=== PATIENT | male | born 1965 | race Caucasian/White ===

== ENCOUNTER 2024-03-29 11:25 | Observation (INO) ==
[2024-03-29 11:34] VITALS: BMI 23.7
--- NOTE | 2024-03-29 11:43 | DR.GIBLEED ---
HPI Time Seen Time Seen by Provider: 03/29/24 11:42 Primary Care Physician Primary Care Physician: NFD Complaints Chief Complaint Doctors Comments: 59-year-old male presents for evaluation. Patient states she had a right inguinal hernia repair approxi-1/2 years ago at another facility. Hernia has returned, has been increasing over the past several weeks pain and swelling worsened this a.m. Denies associated nausea, vomiting, constipation he has had 2 episodes of bowel movements with bright red blood today states she has had a large amount of clots in the toilet denies fever, chills, URI symptoms, bladder issues. Chief Complaint:: Patient states that he has a hernia that has reappeared in his lower abdomen. He had surgery to repair the hernia around a year and a half ago. He states that since then he started passing loose red stools. This all started this morning. He states that he has pain around the hernia and rates it a 9/10. COVID-19 Coronavirus risk:travel/contact w/high risk person: No Has patient experienced Coronavirus symptoms: No Reviewed Nurses Notes Reviewed: Yes Source History Provided: Patient Mode of Arrival Mode of Arrival: Ambulatory Timing Onset of Chief Complaint: 03/29/24 PMH PMH Past Medical History: No Past Surgical History: Yes Surgical History: Ortho Surgery and Other Past Surgical History Comment: Right hip, hernia repair Family History History of Family Medical Conditions: Yes Family Medical History: Diabetes Mellitus, Cancer and Hypertension Social History Does patient currently use any type of tobacco product: Yes Have you used tobacco products in the last 12 months: Yes Type of Tobacco Use: Cigarettes Does any household member use tobacco: Yes Alcohol Use: Occasionally Do you use any recreational Drugs:: No Lives With: Family Lives Where: Home Travel Risk Coronavirus risk:travel/contact w/high risk person: No Has patient experienced Coronavirus symptoms: No Infectious screening In the last 2 months have you had wt loss of >10#?: NO Have you had fever, night sweats or hemotysis?: No Have you traveled outside the country in the last 6 months?: No Isolation: Standard ROS Review of Systems Constitutional: No Symptoms Reported Eyes: No Symptoms Reported ENTM: No Symptoms Reported Respiratoy: No Symptoms Reported Cardiovascular: No Symptoms Reported Gastrointestinal/Abdominal: See HPI Genitourinary: No Symptoms Reported Neurological: No Symptoms Reported Musculoskeletal: No Symptoms Reported Integumentary: No Symptoms Reported Hematologic/Lymphatic: See HPI All Other Systems: Reviewed and Negative PE Vital Signs Vitals: Vital Signs Temperature 97.6 F Pulse Rate 105 Respiratory Rate 18 Respiratory Rate 18 Blood Pressure 122/85 O2 Sat by Pulse Oximetry 96 General General Appearance: Alert and In No Apparent Distress Eyes Eye exam: PERRL and EOMI ENT ENT Exam: Mucous Membranes Moist Neck Neck Exam: Normal Inspection Respiratory Respiratory Exam: Normal Lung Sounds Bilat; negative Accessory Muscle Use or Respiratory Distress Cardiovascular Cardiovascular Exam: Regular Rate, Normal Rhythm and Normal Heart Sounds Abdominal Exam Abdominal Exam: Normal Bowel Sounds, Soft and Tenderness (R inguinal hernia, large, soft, unable to reduce. ) Rectal Rectal Exam: Other (small amount of brown stool, no gross blood. ) Extremities Extremities Exam: Normal Inspection Neurologic Neurological Exam: Alert, Oriented X3 and CN II-XII Intact; negative Motor Sensory Deficit Skin Skin Exam: Warm and Dry COURSE Treatment Treatment: Patient reportedly with repair of right inguinal hernia 1 1/2 years ago, now back to larger size. Also reports bright red blood per rectum x 2 today. Rectal exam shows brown stool, is heme positive. Labs are overall acceptable. CT of the abdomen pelvis obtained, shows large right inguinal hernia, with degree of small bowel obstruction. Discussed with general surgery, Dr. Shirley, he will admit the patient ROR Labs Reviewed Laboratory Results Reviewed?: Yes 03/29/24 12:04 03/29/24 12:04 Laboratory: WBC 15.7 X10^3/uL (3.6-10.0) H 03/29/24 12:04 RBC 5.42 X10^6/uL (4.7-6.0) 03/29/24 12:04 Hgb 15.9 g/dL (13.5-18.0) 03/29/24 12:04 Hct 47.8 % (42.0-54.0) 03/29/24 12:04 MCV 88.2 fL (80.0-100.0) 03/29/24 12:04 MCH 29.4 pg (27.0-34.0) 03/29/24 12:04 MCHC 33.3 g/dL (33.0-35.0) 03/29/24 12:04 RDW 15.8 % (11.6-16.5) 03/29/24 12:04 Plt Count 278 X10^3/uL (150.0-450.0) 03/29/24 12:04 MPV 6.7 fL (7.4-11.0) L 03/29/24 12:04 Neut % (Auto) 87.6 % (42.0-75.0) H 03/29/24 12:04 Lymph % (Auto) 8.6 % (21.0-51.0) L 03/29/24 12:04 [place] % (Auto) 3.5 % (0.0-13.0) 03/29/24 12:04 Eos % (Auto) 0.1 % (0.9-2.9) L 03/29/24 12:04 Baso % (Auto) 0.2 % (0.2-1.0) 03/29/24 12:04 Neut # (Auto) 13.8 x10^3/uL (2.2-4.8) H 03/29/24 12:04 Lymph # (Auto) 1.3 X10^3/uL (1.3-2.9) 03/29/24 12:04 [place] # (Auto) 0.6 x10^3/uL (0.3-0.8) 03/29/24 12:04 Eos # (Auto) 0.0 x10^3/uL (0.0-0.2) 03/29/24 12:04 Baso # (Auto) 0.0 X10^3/uL (0.0-0.1) 03/29/24 12:04 Absolute Nucleated RBC 0.3 /100WBC 03/29/24 12:04 Sodium 137 mmol/L (136-145) 03/29/24 12:04 Corrected Sodium 139 mmol/L (136-145) 03/29/24 12:04 Potassium 4.1 mmol/L (3.5-5.1) 03/29/24 12:04 Chloride 98 mmol/L (98-107) 03/29/24 12:04 Carbon Dioxide 28.7 mmol/L (21-32) 03/29/24 12:04 BUN 32 mg/dL (7-18) H 03/29/24 12:04 Creatinine 1.07 mg/dL (0.70-1.30) 03/29/24 12:04 Est GFR (MDRD) Af Amer > 60 (>60) 03/29/24 12:04 Est GFR (MDRD) Non-Af > 60 (>60) 03/29/24 12:04 Glucose 195 mg/dL (65-99) H 03/29/24 12:04 Calcium 10.2 mg/dL (8.5-10.1) H 03/29/24 12:04 Corrected Calcium TNP 03/29/24 12:04 Total Bilirubin 0.60 mg/dL (0.2-1.0) 03/29/24 12:04 AST 23 Units/L (15-37) 03/29/24 12:04 ALT 19 Units/L (12-78) 03/29/24 12:04 Alkaline Phosphatase 85 Units/L (46-116) 03/29/24 12:04 Total Protein 8.8 g/dL (6.4-8.2) H 03/29/24 12:04 Albumin 4.7 g/dL (3.4-5.0) 03/29/24 12:04 Globulin 4.1 g/dL (2.5-4.5) 03/29/24 12:04 Albumin/Globulin Ratio 1.1 Ratio (1.1-2.1) 03/29/24 12:04 Lipase 19 Units/L (16-77) 03/29/24 12:04 Stl Occult Blood (IFOB) Positive (NEGATIVE) A 03/29/24 11:50 + blood in stool XRAY XRAY Interpreted by: Both X-ray Results: ADDENDUM BEGINS ADDENDUM: Findings were communicated by Jamison Swift GRA imaging support to Dr. Mcgill 12:51 p.m. 03/29/[address] Valera THIS IS AN ELECTRONICALLY VERIFIED FINAL REPORT 03/29/2024 2:23 PM - Electronically signed by Tam Valera MD EXAM: CT abdomen pelvis without contrast HISTORY: Large right inguinal hernia TECHNIQUE: Axial noncontrast images with coronal and sagittal reformats. Dose reduction procedures were used with mA/kv adjusted for body size. This examination is limited due to the lack of intravenous contrast. Examination was performed in this manner at the sole direction of the ordering caregiver. COMPARISON: None FINDINGS: Lung bases are clear. Changes of paraseptal emphysema identified in the left lower lung field. The liver, spleen, adrenal glands, and pancreas are within normal limits. Cholelithiasis is present. No evidence for cholecystitis. Kidneys are unobstructed and without stones or masses. There is some vascular calcifications in the upper pole of the right kidney. No ureteral calculi are identified. Calcific atherosclerotic changes present in a not significantly dilated abdominal aorta. No enlarged intraperitoneal or retroperitoneal lymphadenopathy is identified. There are no findings suggestive of enteritis or colitis. Diverticulosis of the descending and sigmoid colon identified. There is marked dilatation and fluid filling of a large portion of the small bowel up to a maximum diameter of 4.6 cm. The dilatation is proximal to a 13 cm by 8.5 cm by 6.2 cm right inguinal hernia within which there is both dilated and nondilated small bowel. There is some mild transmural thickening in 1 of the loops within the hernia. Early strangulation is possible. Distal to the hernia the small bowel and colon are partially collapsed. No pelvic masses, pelvic fluid, or pelvic lymphadenopathy is identified. No definite bladder abnormality is identified. No lytic or blastic skeletal lesions of significance identified. IMPRESSION: High-grade partial small bowel obstruction with the site of the obstruction in the distal ileum and due to bowel within a 13 cm x 8.5 cm x 6.2 cm right in guinal hernia. A loop of mildly dilated bowel within the hernia demonstrates some mild transmural thickening. Early strangulation not excluded. Expedient surgical evaluation is recommended. Cholelithiasis without evidence for cholecystitis Changes of paraseptal emphysema left lung base THIS IS AN ELECTRONICALLY VERIFIED FINAL REPORT 03/29/2024 1:43 PM - Electronically signed by Tam Valera MD ADDENDUM ENDS EXAM: CT abdomen pelvis without contrast HISTORY: Large right inguinal hernia TECHNIQUE: Axial noncontrast images with coronal and sagittal reformats. Dose reduction procedures were used with mA/kv adjusted for body size. This examination is limited due to the lack of intravenous contrast. Examination was performed in this manner at the sole direction of the ordering caregiver. COMPARISON: None FINDINGS: Lung bases are clear. Changes of paraseptal emphysema identified in the left lower lung field. The liver, spleen, adrenal glands, and pancreas are within normal limits. Cholelithiasis is present. No evidence for cholecystitis. Kidneys are unobstructed and without stones or masses. There is some vascular calcifications in the upper pole of the right kidney. No ureteral calculi are identified. Calcific atherosclerotic changes present in a not significantly dilated abdominal aorta. No enlarged intraperitoneal or retroperitoneal lymphadenopathy is identified. There are no findings suggestive of enteritis or colitis. Diverticulosis of the descending and sigmoid colon identified. There is marked dilatation and fluid filling of a large portion of the small bowel up to a maximum diameter of 4.6 cm. The dilatation is proximal to a 13 cm by 8.5 cm by 6.2 cm right inguinal hernia within which there is both dilated and nondilated small bowel. There is some mild transmural thickening in 1 of the loops within the hernia. Early strangulation is possible. Distal to the hernia the small bowel and colon are partially collapsed. No pelvic masses, pelvic fluid, or pelvic lymphadenopathy is identified. No definite bladder abnormality is identified. No lytic or blastic skeletal lesions of significance identified. IMPRESSION: High-grade partial small bowel obstruction with the site of the obstruction in the distal ileum and due to bowel within a 13 cm x 8.5 cm x 6.2 cm right inguinal hernia. A loop of mildly dilated bowel within the hernia demonstrates some mild transmural thickening. Early strangulation not excluded. Expedient surgical evaluation is recommended. Cholelithiasis without evidence for cholecystitis Changes of paraseptal emphysema left lung base THIS IS AN ELECTRONICALLY VERIFIED FINAL REPORT 03/29/2024 1:43 PM - Electronically signed by Tam Valera MD Opioid Opioid Risk Tool Age (Alex box if 16-45): No History of Preadolescent Sexual Abuse: No Total: 0 Total Score Risk Category: Low Risk Copyright: Kevin MATA predicting aberrant behaviors Discharge Plan Diagnosis Discharge Problem: Incarcerated right inguinal hernia, Acute lower GI bleeding Discharge Plan Patient Disposition: 09 ADMITTED INPATIENT Condition: Stable Orders to Discharge Patient Discharge Orders: Transfer (Routine); Ordered 03/29/24 Ordered By: Gallito Mcgill
[2024-03-29] MEDS: NS 1,000 ML IV 1,000 ML IV ONE (12:09)
[2024-03-29 12:25] LABS: ALANINE AMINOTRANSFERASE 19 Units/L (12-78); ALBUMIN 4.7 g/dL (3.4-5.0); ALKALINE PHOSPHATASE 85 Units/L (46-116); ASPARTATE AMINO TRANSFERASE 23 Units/L (15-37); BASOPHILS % (AUTO) 0.2 % (0.2-1.0); BLOOD UREA NITROGEN 32 mg/dL (7-18); CALCIUM 10.2 mg/dL (8.5-10.1); CARBON DIOXIDE 28.7 mmol/L (21-32); CHLORIDE 98 mmol/L (98-107); COR NA(FOR HYPERGLY) 139 mmol/L (136-145); CREATININE 1.07 mg/dL (0.70-1.30); EOSINOPHILS % (AUTO) 0.1 % (0.9-2.9); GLUCOSE 195 mg/dL (65-99); HEMATOCRIT 47.8 % (42.0-54.0); HEMOGLOBIN 15.9 g/dL (13.5-18.0); LIPASE 19 Units/L (16-77); LYMPHOCYTES # (AUTO) 1.3 X10^3/uL (1.3-2.9); LYMPHOCYTES % (AUTO) 8.6 % (21.0-51.0); MEAN CORPUSCULAR HEMOGLOBIN 29.4 pg (27.0-34.0); MEAN CORPUSCULAR HGB CONC 33.3 g/dL (33.0-35.0); MEAN CORPUSCULAR VOLUME 88.2 fL (80.0-100.0); MEAN PLATELET VOLUME 6.7 fL (7.4-11.0); MONOCYTES # (AUTO) 0.6 x10^3/uL (0.3-0.8); MONOCYTES % (AUTO) 3.5 % (0.0-13.0); NEUTROPHILS # (AUTO) 13.8 x10^3/uL (2.2-4.8); NEUTROPHILS % (AUTO) 87.6 % (42.0-75.0); PLATELET COUNT 278 X10^3/uL (150.0-450.0); POTASSIUM 4.1 mmol/L (3.5-5.1); RED BLOOD COUNT 5.42 X10^6/uL (4.7-6.0); RED CELL DISTRIBUTION WIDTH 15.8 % (11.6-16.5); SODIUM 137 mmol/L (136-145); TOTAL PROTEIN 8.8 g/dL (6.4-8.2); WHITE BLOOD COUNT 15.7 X10^3/uL (3.6-10.0); eGFR NON BLACK RACES > 60 (>60)
[2024-03-29] MEDS: ATIVAN INJ 2 MG VIAL IVP ONE (12:31)
[2024-03-29] MEDS: TORADOL 30 MG VIAL IVP ONE (12:31)
--- NOTE | 2024-03-29 13:47 | CT ---
EXAM:CT abdomen pelvis without contrastHISTORY:Large right inguinal herniaTECHNIQUE:Axial noncontrast images with coronal and sagittal reformats. Dose reduction procedures were used with mA/kv adjusted for body size. This examination is limited due to the lack of intravenous contrast. Examination was performed in this manner at the sole direction of the ordering caregiver.COMPARISON:NoneFINDINGS:Lung bases are clear. Changes of paraseptal emphysema identified in the left lower lung field. The liver, spleen, adrenal glands, and pancreas are within normal limits. Cholelithiasis is present. No evidence for cholecystitis. Kidneys are unobstructed and without stones or masses. There is some vascular calcifications in the upper pole of the right kidney. No ureteral calculi are identified. Calcific atherosclerotic changes present in a not significantly dilated abdominal aorta. No enlarged intraperitoneal or retroperitoneal lymphadenopathy is identified. There are no findings suggestive of enteritis or colitis. Diverticulosis of the descending and sigmoid colon identified. There is marked dilatation and fluid filling of a large portion of the small bowel up to a maximum diameter of 4.6 cm. The dilatation is proximal to a 13 cm by 8.5 cm by 6.2 cm right inguinal hernia within which there is both dilated and nondilated small bowel. There is some mild transmural thickening in 1 of the loops within the hernia. Early strangulation is possible. Distal to the hernia the small bowel and colon are partially collapsed. No pelvic masses, pelvic fluid, or pelvic lymphadenopathy is identified. No definite bladder abnormality is identified. No lytic or blastic skeletal lesions of significance identified.IMPRESSION:High-grade partial small bowel obstruction with the site of the obstruction in the distal ileum and due to bowel within a 13 cm x 8.5 cm x 6.2 cm right inguinal hernia. A loop of mildly dilated bowel within the hernia demonstrates some mild transmural thickening. Early strangulation not excluded. Expedient surgical evaluation is recommended.Cholelithiasis without evidence for cholecystitisChanges of paraseptal emphysema left lung baseTHIS IS AN ELECTRONICALLY VERIFIED FINAL REPORT03/29/2024 1:43 PM - Electronically signed by Tam Valera MD
[2024-03-29] MEDS ORDERED: NS 250 ML IV 25 ML IV PRN (16:34)
[2024-03-29] MEDS ORDERED: CONSULT PHARMACY - POTASSIUM & MAGNESIUM XX SCH (16:34)
[2024-03-29] MEDS ORDERED: ZOFRAN INJ 4 MG VIAL ONE (16:38)
[2024-03-29] MEDS: ZOFRAN INJ 4 MG VIAL IVP PRN (16:45)
[2024-03-29] MEDS: MORPHINE SULFATE INJ 4 MG IVP PRN (17:47)
[2024-03-29] MEDS: D5 1/2 NS 1,000 ML 1,000 ML IV SCH (17:50)
[2024-03-29] MEDS: ZOSYN VIAL 3.375 GRAMS 3.375 G in NS 100 ML IV 100 ML IV SCH (17:54)
[2024-03-29] MEDS: AMBIEN PO PRN (21:30)
[2024-03-29 21:41] LABS: BILIRUBIN,URINE 1+ (NEGATIVE); BLOOD/HEMOGLOBIN,URINE NEGATIVE (NEGATIVE); GLUCOSE, URINE 1+ (NEGATIVE); KETONES,URINE 3+ (NEGATIVE); LEUKOCYTE ESTERASE ,URINE 1+ (NEGATIVE); NITRITES,URINE NEGATIVE (NEGATIVE); PROTEIN,URINE 3+ (NEGATIVE); UROBILINOGEN,URINE 1+ (NORMAL)
[2024-03-29 21:48] LABS: APPEARANCE,URINE SLIGHTLY HAZY (CLEAR); COLOR,URINE AMBER (YELLOW)
[2024-03-29 21:55] LABS: BACTERIA,URINE TRACE /HPF (NEGATIVE); HYALINE CASTS, URINE FEW /LPF (NEGATIVE); RBC,URINE 0-2 /HPF (0-3); SQUAMOUS EPITHELIAL CELL,UR FEW /HPF (NEGATIVE)
--- NOTE | 2024-03-29 23:04 | DR.H&P ---
H&P History & Physical for Day of: H&P Date: 03/29/24 Chief Complaint Chief Complaint: swelling right groin History of Present Illness History of Present Illness: 59 yo male with histroy of open right inguinal hernia repair 1to 2 years ago. He has known for some time he has a recurrent right inguinal hernia . Evaluated in the ER. CT scan shows incarcerated right ingunal hernia with dilated small bowel. No symptoms of small bowel obstruction. No nausea or vomiting . Has had some blood per rectum. Past Surgical History Surgical History: Ortho Surgery (right hip replacement) Family History Family Medical History: Diabetes Mellitus, Cancer and Hypertension Social History Does patient currently use any type of tobacco product: Yes Have you used tobacco products in the last 12 months: Yes Type of Tobacco Use: Cigarettes Does any household member use tobacco: Yes Alcohol Use: None Drug Use: None Medications Home Medications: Home Medications Medication Instructions Recorded Confirmed Type NK 03/29/24 03/29/24 History Allergies Allergies Allergy/AdvReac Type Severity Reaction Status Date / Time No Known Allergies Allergy Verified 03/29/24 11:26 Labs 03/29/24 12:04 03/29/24 12:04 Labs: Laboratory WBC 15.7 X10^3/uL (3.6-10.0) H 03/29/24 12:04 RBC 5.42 X10^6/uL (4.7-6.0) 03/29/24 12:04 Hgb 15.9 g/dL (13.5-18.0) 03/29/24 12:04 Hct 47.8 % (42.0-54.0) 03/29/24 12:04 MCV 88.2 fL (80.0-100.0) 03/29/24 12:04 MCH 29.4 pg (27.0-34.0) 03/29/24 12:04 MCHC 33.3 g/dL (33.0-35.0) 03/29/24 12:04 RDW 15.8 % (11.6-16.5) 03/29/24 12:04 Plt Count 278 X10^3/uL (150.0-450.0) 03/29/24 12:04 MPV 6.7 fL (7.4-11.0) L 03/29/24 12:04 Neut % (Auto) 87.6 % (42.0-75.0) H 03/29/24 12:04 Lymph % (Auto) 8.6 % (21.0-51.0) L 03/29/24 12:04 [place] % (Auto) 3.5 % (0.0-13.0) 03/29/24 12:04 Eos % (Auto) 0.1 % (0.9-2.9) L 03/29/24 12:04 Baso % (Auto) 0.2 % (0.2-1.0) 03/29/24 12:04 Neut # (Auto) 13.8 x10^3/uL (2.2-4.8) H 03/29/24 12:04 Lymph # (Auto) 1.3 X10^3/uL (1.3-2.9) 03/29/24 12:04 [place] # (Auto) 0.6 x10^3/uL (0.3-0.8) 03/29/24 12:04 Eos # (Auto) 0.0 x10^3/uL (0.0-0.2) 03/29/24 12:04 Baso # (Auto) 0.0 X10^3/uL (0.0-0.1) 03/29/24 12:04 Absolute Nucleated RBC 0.3 /100WBC 03/29/24 12:04 Sodium 137 mmol/L (136-145) 03/29/24 12:04 Corrected Sodium 139 mmol/L (136-145) 03/29/24 12:04 Potassium 4.1 mmol/L (3.5-5.1) 03/29/24 12:04 Chloride 98 mmol/L (98-107) 03/29/24 12:04 Carbon Dioxide 28.7 mmol/L (21-32) 03/29/24 12:04 BUN 32 mg/dL (7-18) H 03/29/24 12:04 Creatinine 1.07 mg/dL (0.70-1.30) 03/29/24 12:04 Est GFR (MDRD) Af Amer > 60 (>60) 03/29/24 12:04 Est GFR (MDRD) Non-Af > 60 (>60) 03/29/24 12:04 Glucose 195 mg/dL (65-99) H 03/29/24 12:04 Calcium 10.2 mg/dL (8.5-10.1) H 03/29/24 12:04 Corrected Calcium TNP 03/29/24 12:04 Magnesium 2.0 mg/dL (2.0-2.9) 03/29/24 12:04 Total Bilirubin 0.60 mg/dL (0.2-1.0) 03/29/24 12:04 AST 23 Units/L (15-37) 03/29/24 12:04 ALT 19 Units/L (12-78) 03/29/24 12:04 Alkaline Phosphatase 85 Units/L (46-116) 03/29/24 12:04 Total Protein 8.8 g/dL (6.4-8.2) H 03/29/24 12:04 Albumin 4.7 g/dL (3.4-5.0) 03/29/24 12:04 Globulin 4.1 g/dL (2.5-4.5) 03/29/24 12:04 Albumin/Globulin Ratio 1.1 Ratio (1.1-2.1) 03/29/24 12:04 Lipase 19 Units/L (16-77) 03/29/24 12:04 Specimen Type Clean catch urine 03/29/24 21:00 Urine Color Kathi (YELLOW) 03/29/24 21:00 Urine Appearance Slightly hazy (CLEAR) 03/29/24 21:00 Urine pH 6.0 (5.0 - 8.0) 03/29/24 21:00 Ur Specific [place] 1.030 (1.000-1.030) 03/29/24 21:00 Urine Protein 3+ (NEGATIVE) 03/29/24 21:00 Urine Glucose (UA) 1+ (NEGATIVE) 03/29/24 21:00 Urine Ketones 3+ (NEGATIVE) 03/29/24 21:00 Urine Blood Negative (NEGATIVE) 03/29/24 21:00 Urine Nitrite Negative (NEGATIVE) 03/29/24 21:00 Urine Bilirubin 1+ (NEGATIVE) 03/29/24 21:00 Urine Urobilinogen 1+ (NORMAL) 03/29/24 21:00 Ur Leukocyte Esterase 1+ (NEGATIVE) 03/29/24 21:00 Urine RBC 0-2 /HPF (0-3) 03/29/24 21:00 Urine WBC 0-2 /HPF (0-5) 03/29/24 21:00 Ur Squamous Epith Cells Few /HPF (NEGATIVE) 03/29/24 21:00 Urine Bacteria Trace /HPF (NEGATIVE) 03/29/24 21:00 Hyaline Casts Few /LPF (NEGATIVE) 03/29/24 21:00 Urine Mucus Many /HPF (NEGATIVE) 03/29/24 21:00 Ur Culture Indicated? No/not indicated 03/29/24 21:00 Stl Occult Blood (IFOB) Positive (NEGATIVE) A 03/29/24 11:50 Review of Systems Constitutional: See HPI Eyes: No Symptoms Reported ENT: No Symptoms Reported Respiratory: No Symptoms Reported Cardiovascular: No Symptoms Reported Gastrointestinal: See HPI Genitourinary: No Symptoms Reported Musculoskeletal: See HPI Skin: No Symptoms Reported Neurological: No Symptoms Reported Physical Exam Vital Signs: Vital Signs Temperature 98.3 F Temperature 97.4 F Pulse Rate [Brachial] 94 Pulse Rate [Brachial] 94 Respiratory Rate 18 Respiratory Rate 20 Respiratory Rate 18 Respiratory Rate 18 Blood Pressure [Left Arm] 133/76 Blood Pressure [Left Arm] 159/94 O2 Sat by Pulse Oximetry 97 O2 Sat by Pulse Oximetry 95 Oriented: Normal, Time, Person and Place Eyes: Normal Ear: Normal Nose: Normal Throat: Normal Respiratory: Clear Throughout Cardiovascular: Normal : Normal (large , incarcerated right inguinal henia ) Auscultation: Bowel Sounds: Normal Palpation: Normal Tenderness: Normal Skin: Normal Musculoskeletal: Normal Psychiatric: Normal Mood Description: Calm Affect: Normal Speech Pattern: Clear and Appropriate Assessment/Plan (1) Incarcerated right inguinal hernia: Status: Acute Plan: clear liquid diet, NPO after midnight , plan repair of recurrent , incarcerated right inguinal hernia (2) Acute lower GI bleeding: Status: Acute Plan: Will evaluate the GI blled after hernia is resolved . Hgb is stable, 15.9 grams
--- NOTE | 2024-03-29 23:17 | EKG ---
Test Reason : sx protocol Blood Pressure : */* mmHG Vent. Rate : 98 BPM Atrial Rate : 98 BPM P-R Int : 138 ms QRS Dur : 86 ms QT Int : 352 ms P-R-T Axes : 69 42 63 degrees QTc Int : 449 ms Normal sinus rhythm Possible Left atrial enlargement Borderline ECG No previous ECGs available Confirmed by Shun Andrade MD ([id number]) on 03/30/2024 6:04:15 AM Referred By: Confirmed By: Shun Andrade MD
[2024-03-30] MEDS: HIBICLENS WASH EXT ONE (03:43)
[2024-03-30 06:41] LABS: BASOPHILS % (AUTO) 0.2 % (0.2-1.0); EOSINOPHILS % (AUTO) 0.3 % (0.9-2.9); HEMATOCRIT 46.6 % (42.0-54.0); HEMOGLOBIN 15.5 g/dL (13.5-18.0); LYMPHOCYTES # (AUTO) 1.2 X10^3/uL (1.3-2.9); LYMPHOCYTES % (AUTO) 13.6 % (21.0-51.0); MEAN CORPUSCULAR HEMOGLOBIN 29.7 pg (27.0-34.0); MEAN CORPUSCULAR HGB CONC 33.4 g/dL (33.0-35.0); MEAN CORPUSCULAR VOLUME 88.9 fL (80.0-100.0); MEAN PLATELET VOLUME 7.1 fL (7.4-11.0); MONOCYTES # (AUTO) 0.9 x10^3/uL (0.3-0.8); MONOCYTES % (AUTO) 10.1 % (0.0-13.0); NEUTROPHILS # (AUTO) 6.9 x10^3/uL (2.2-4.8); NEUTROPHILS % (AUTO) 75.8 % (42.0-75.0); PLATELET COUNT 239 X10^3/uL (150.0-450.0); RED BLOOD COUNT 5.24 X10^6/uL (4.7-6.0); RED CELL DISTRIBUTION WIDTH 15.8 % (11.6-16.5); WHITE BLOOD COUNT 9.1 X10^3/uL (3.6-10.0)
[2024-03-30 07:05] LABS: ALANINE AMINOTRANSFERASE 15 Units/L (12-78); ALBUMIN 3.4 g/dL (3.4-5.0); ALKALINE PHOSPHATASE 65 Units/L (46-116); ASPARTATE AMINO TRANSFERASE 19 Units/L (15-37); BLOOD UREA NITROGEN 36 mg/dL (7-18); CALCIUM 8.9 mg/dL (8.5-10.1); CARBON DIOXIDE 25.7 mmol/L (21-32); CHLORIDE 102 mmol/L (98-107); COR NA(FOR HYPERGLY) 139 mmol/L (136-145); CREATININE 0.88 mg/dL (0.70-1.30); GLUCOSE 153 mg/dL (65-99); SODIUM 138 mmol/L (136-145); eGFR NON BLACK RACES > 60 (>60)
[2024-03-30] MEDS: LR 1,000 ML IV 1,000 ML IV ONE (08:42)
[2024-03-30] MEDS: DILAUDID INJ ONE (09:21)
[2024-03-30] MEDS: NS 100 ML IV 100 ML ONE (09:24)
[2024-03-30] MEDS: ANCEF VIAL 1 GRAM ONE (09:24)
[2024-03-30] MEDS: BACTROBAN TOPICAL OINT ONE (09:26)
[2024-03-30] MEDS: VERSED ONE (09:32)
[2024-03-30] MEDS: ZEMURON 100 MG VIAL ONE (09:36)
[2024-03-30] MEDS: DIPRIVAN VIAL 20 ML ONE (09:42)
[2024-03-30] MEDS ORDERED: PRECEDEX INJ VIAL ONE (09:42)
[2024-03-30] MEDS ORDERED: SUPRANE ONE (09:42)
[2024-03-30] MEDS: PEPCID 20 MG VIAL ONE (09:51)
[2024-03-30] MEDS: DECADRON INJ ONE (09:51)
[2024-03-30] MEDS: ZOFRAN INJ 4 MG VIAL ONE (09:51)
[2024-03-30] MEDS: MARCAINE 0.5% ONE (09:54)
[2024-03-30] MEDS ORDERED: BENADRYL INJ 50 MG VIAL IVP PRN (10:08)
[2024-03-30] MEDS ORDERED: DILAUDID INJ IVP PRN (10:08)
[2024-03-30] MEDS ORDERED: BARHEMSYS INJ IVP PRN (10:08)
[2024-03-30] MEDS ORDERED: REGLAN INJ 10 MG VIAL IVP PRN (10:08)
[2024-03-30] MEDS ORDERED: ZOFRAN INJ 4 MG VIAL IVP PRN (10:08)
[2024-03-30] MEDS: BRIDION ONE (10:29)
--- NOTE | 2024-03-30 11:54 | OR.IMMED ---
IMMEDIATE POST-OP NOTE Immediate Post-Op Note Date of surgery/procedure: 03/30/24 Pre-Op Diagnosis: Recurrent right inguinal ,incarcerated hernia Post-Op Diagnosis: Recurrent right inginal hernia with strangulated small bowel. Procedure: Repair recurrent right inguinal hernia with strangulated bowel. Description of Procedure: dictated Surgeon/Eligibility Services Representative: Fern Findings: as above , 15 cm segment of stangulated small bowel pinked up and did not require resection. Specimens Removed: henia sac Estimated Blood Loss: < 50 cc Complications: none Progress Notes: return to floor, begin diet, COYN drain in place
[2024-03-30] MEDS: PERCOCET TAB 5/325 MG PO PRN (14:06)
--- NOTE | 2024-03-30 16:41 | DR.OPNOTE ---
OP NOTE Pre-Op Diagnosis: Incarcerated , recurrent right inguinal hernia Post-Op Diagnosis: strangulated , recurrent right inguinal hernia Procedure Date Date Of Procedure: 03/30/24 Procedure: PROCEDURE : OPEN REPAIR RECURRENT , STANGULATED RIGHT INGUINAL HERNIA NARRATIVE : The patient was taken to the operative suite and placed in the Supine position. General anesthesia induced. The entire lower abdomen and scrotum were prepped and draped in sterile fashion. Time out for the procedure obtained. The previous right inguinal incision approximately 8 centimeters in length was opened with a number of 10 blade knife extending through the subcutan eous tissue eith electrocautery and opened the external oblique fascia sharply through the external ring. The cord structures which were markedly enlarged due to this incarcerated hernia were encircled with a Waka drain. I tried to reduce as much of the hernia as I could before the procedure but colud not completely reduce it. We opened the sack and the patient had small bowel in the sac. The sac contents were eviscerated from the groin. The distal part was very difficult and I had open a tight ring going into the scrotum with electrocautery and a 15 cm piece of strangulated bowel removed from the scrotum which had been twisted and was ischemia looking. We watched this bowel for 5 minutes minutes and it pinked up. The bowel was placed back in the abdominal cavity and the peritoneal defect closed with running ,locking 2-0 silk suture ligature. And this point I disectd free the cord structures. The vas deferens was divided because of where it was on the sack. The sack removed in it's entirety. A 3 by 5 inch of Prolene mesh was placed in the inguinal canal across the floor of the inuinal canal .The mesh was sutured with interrupted 2-0 Prolene suture to the pubic tubicle , the transversalis fascia medially and the shelving edge of the inuinal ligament laterally. Th remaindereof the mesh was placed under the external oblique fascia up into the incision. A flat #10 CONY drain was placed through a stab incision in the right abdomen underneath the external oblique fascia. There was some fluid draining here. There also will be significant fluid in the scrotum. Once the drain was placed below the external oblique fascia ,the fascia was closed with running 3-0 Vicryl . Subcuatneous tissue closed with running 3-0 Vicryl suture and the skin closed with skin [place]. Patient had dressing . Patient extubated and taken to the PACU in good condition. Type of Anesthesia: General Anesthetic w/ETT Findings: as above Specimen/Pathology: hernia sac Type of Fluids Used:: Lactated Ringers Total Amount of Fluid Infused:: 500cc EBL: <50 cc Drains/Tubes Placed: Ramiro Pereira (CONY drain placed below external oblique fascia and brought out right LQ stab incision. ) Hardware: Prolene mesh Complications:: none Needle/Sponge Count:: correct Disposition/Condition: Pt. tolerated procedure without difficulty. Extubated and taken to PACU in stable condition.
--- NOTE | 2024-03-31 08:02 | RAD ---
EXAM:CHEST, 1 VIEWHISTORY:PRE OP-INCARCERATED RIGHT INGUINAL HERNIA;COMPARISON:None available.FINDINGS:The trachea is midline. The cardiac silhouette is unremarkable. Subtle airspace opacity right lower lobe is observed likely on the basis of subsegmental atelectasis. Left hemithorax appears clear.. The bony thorax is unremarkable.IMPRESSION:Airspace opacity in the right lower lobe most consistent with subsegmental atelectasis.THIS IS AN ELECTRONICALLY VERIFIED FINAL REPORT03/31/2024 7:58 AM - Electronically signed by Amador Ponce MD
[2024-03-31] MEDS: COLACE CAP 100 MG PO PRN (12:52)
--- NOTE | 2024-03-31 17:41 | NOTE.SOAP ---
Soap Note Note for Day of Date of Exam: 03/31/24 Subjective Data Subjective Data: POD #1 after repair strangulated right inguinal hernia . Taking po. CONY with minimal output. Objective Data Temperature: 98.2 F Pulse Rate: 88 Respiratory Rate: 21 Blood Pressure: 122/81 O2 Sat by Pulse Oximetry: 96 Objective Data: CONY drainage serous , Inciision with minimal drainage Assessment Assessment: s/p repair strangulated right inguinal hernia Plan Plan: Patient was being readied for discharge and he told nursing staff that he felt unsteady and they agreed to let him stay. I agreed.
[2024-04-01 09:12] VITALS: BP 143/90; PULSE 80; TEMP 97.3; O2SAT 94
--- NOTE | 2024-04-01 10:24 | W.DIS.FURT ---
Summary of Discharge Discharge Summary of Date Date of Exam: 04/01/24 Admission Date Date of Admission: 03/29/24 Admission Diagnosis Patient Problems (Updated 03/29/24 @ 16:05 by Gallito Mcgill) Incarcerated right inguinal hernia (Acute) K40.30 Acute lower GI bleeding (Acute) K92.2 Hospital Course: 59 yo male presented with recurrent , incarcerated right inguinal hernia and had some blood per rectum. Exploration the next day revealed strangulated right inguinal . He underwent repair and had no bowel resection. He has done well , Hgb has been stable at 15.5 mg. He is tolerating a regular diet . He will be discharged with drain in place and will be instructed how to empty and record drainage. He may shower . F/U 1 week in my office to remove drain, wear scrotal support. Given prescription for Percocet, 5 mg , 1 po q 6 hr PRN pain, # 30. Will w/u bl0od per rectum as outpatient. Vital Signs: Vital Signs (72 hours) 03/31/24 17:41 03/29/24 11:27 03/29/24 12:31 Temperature 98.2 F 97.6 F Pulse Rate 88 105 H Pulse Rate [Brachial] Respiratory Rate 21 18 18 Blood Pressure 122/81 122/85 Blood Pressure [Left Arm] O2 Sat by Pulse Oximetry 96 96 Oxygen Delivery Method 03/29/24 16:46 03/29/24 16:00 03/29/24 17:47 Temperature 97.4 F L Pulse Rate Pulse Rate [Brachial] 94 H Respiratory Rate 18 18 Blood Pressure Blood Pressure [Left Arm] 159/94 O2 Sat by Pulse Oximetry 95 Oxygen Delivery Method Room Air Room Air 03/29/24 18:17 03/29/24 20:00 03/29/24 19:00 Temperature 98.3 F Pulse Rate Pulse Rate [Brachial] 94 H Respiratory Rate 20 18 Blood Pressure Blood Pressure [Left Arm] 133/76 O2 Sat by Pulse Oximetry 97 Oxygen Delivery Method Room Air Room Air 03/30/24 00:00 03/30/24 03:49 03/30/24 04:00 Temperature 98.4 F 97.9 F Pulse Rate Pulse Rate [Brachial] 97 H 102 H Respiratory Rate 19 18 21 Blood Pressure Blood Pressure [Left Arm] 122/79 121/76 O2 Sat by Pulse Oximetry 97 97 Oxygen Delivery Method Room Air Room Air 03/30/24 04:19 03/30/24 08:00 03/30/24 09:00 Temperature 97.8 F Pulse Rate 72 Pulse Rate [Brachial] 99 H Respiratory Rate 19 18 18 Blood Pressure 119/87 Blood Pressure [Left Arm] 122/89 O2 Sat by Pulse Oximetry 98 92 L Oxygen Delivery Method Room Air Room Air 03/30/24 09:21 03/30/24 10:39 03/30/24 10:54 Temperature 98.0 F 98.0 F Pulse Rate 86 89 Pulse Rate [Brachial] Respiratory Rate 19 19 19 Blood Pressure 109/73 123/75 Blood Pressure [Left Arm] O2 Sat by Pulse Oximetry 99 99 Oxygen Delivery Method Aerosol Face Tent Room Air 03/30/24 10:59 03/30/24 11:04 03/30/24 10:44 Temperature 98.0 F 98.0 F 98.0 F Pulse Rate 85 85 89 Pulse Rate [Brachial] Respiratory Rate 19 19 19 Blood Pressure 117/76 114/74 117/85 Blood Pressure [Left Arm] O2 Sat by Pulse Oximetry 99 98 100 Oxygen Delivery Method Room Air Room Air Aerosol Face Tent 03/30/24 10:49 03/30/24 11:09 03/30/24 14:06 Temperature 98.0 F 98.0 F Pulse Rate 87 85 Pulse Rate [Brachial] Respiratory Rate 19 19 19 Blood Pressure 104/64 121/74 Blood Pressure [Left Arm] O2 Sat by Pulse Oximetry 99 98 Oxygen Delivery Method Room Air Room Air 03/30/24 16:00 03/30/24 11:15 03/30/24 11:30 Temperature 98.1 F 98.1 F 98.1 F Pulse Rate Pulse Rate [Brachial] 77 86 85 Respiratory Rate 20 18 18 Blood Pressure Blood Pressure [Left Arm] 119/75 126/82 123/76 O2 Sat by Pulse Oximetry 94 L 94 L 94 L Oxygen Delivery Method Room Air Room Air Room Air 03/30/24 11:45 03/30/24 12:00 03/30/24 12:15 Temperature 98.0 F Pulse Rate Pulse Rate [Brachial] 84 81 79 Respiratory Rate 19 18 18 Blood Pressure Blood Pressure [Left Arm] 130/78 122/78 121/79 O2 Sat by Pulse Oximetry 94 L 95 94 L Oxygen Delivery Method Room Air Room Air Room Air 03/30/24 13:15 03/30/24 14:15 03/30/24 15:15 Temperature 98.0 F 97.9 F 98.1 F Pulse Rate Pulse Rate [Brachial] 87 97 H 77 Respiratory Rate 19 20 20 Blood Pressure Blood Pressure [Left Arm] 135/86 129/82 119/75 O2 Sat by Pulse Oximetry 100 98 94 L Oxygen Delivery Method Room Air Room Air Room Air 03/30/24 16:15 03/30/24 15:06 03/30/24 16:06 Temperature 98.4 F Pulse Rate Pulse Rate [Brachial] 78 Respiratory Rate 18 19 19 Blood Pressure Blood Pressure [Left Arm] 116/75 O2 Sat by Pulse Oximetry 96 Oxygen Delivery Method Room Air 03/30/24 21:21 03/30/24 20:00 03/30/24 22:21 Temperature 98.2 F Pulse Rate Pulse Rate [Brachial] 75 Respiratory Rate 21 21 19 Blood Pressure Blood Pressure [Left Arm] 131/77 O2 Sat by Pulse Oximetry 95 Oxygen Delivery Method Room Air 03/31/24 00:27 03/30/24 19:00 03/31/24 00:00 Temperature 98.0 F Pulse Rate Pulse Rate [Brachial] 79 Respiratory Rate 19 21 Blood Pressure Blood Pressure [Left Arm] 118/74 O2 Sat by Pulse Oximetry 96 Oxygen Delivery Method Room Air Room Air 03/31/24 00:30 03/31/24 00:57 03/31/24 04:00 Temperature 98.4 F Pulse Rate Pulse Rate [Brachial] 82 Respiratory Rate 19 20 Blood Pressure Blood Pressure [Left Arm] 122/80 119/77 O2 Sat by Pulse Oximetry 96 Oxygen Delivery Method Room Air 03/31/24 08:00 03/31/24 07:00 03/31/24 09:17 Temperature 98.0 F Pulse Rate Pulse Rate [Brachial] 84 Respiratory Rate 20 19 Blood Pressure Blood Pressure [Left Arm] 118/65 O2 Sat by Pulse Oximetry 96 Oxygen Delivery Method Room Air Room Air 03/31/24 12:52 03/31/24 10:17 03/31/24 12:00 Temperature 98.1 F Pulse Rate Pulse Rate [Brachial] 83 Respiratory Rate 19 19 20 Blood Pressure Blood Pressure [Left Arm] 119/78 O2 Sat by Pulse Oximetry 95 Oxygen Delivery Method Room Air 03/31/24 16:00 03/31/24 13:52 03/31/24 20:22 Temperature 98.2 F Pulse Rate Pulse Rate [Brachial] 88 Respiratory Rate 21 19 21 Blood Pressure Blood Pressure [Left Arm] 122/81 O2 Sat by Pulse Oximetry 96 Oxygen Delivery Method Room Air 03/31/24 19:00 03/31/24 20:00 04/01/24 00:00 Temperature 98.3 F 98.1 F Pulse Rate Pulse Rate [Brachial] 82 85 Respiratory Rate 20 20 Blood Pressure Blood Pressure [Left Arm] 136/83 130/85 O2 Sat by Pulse Oximetry 97 97 Oxygen Delivery Method Room Air 03/31/24 21:22 04/01/24 04:00 04/01/24 09:08 Temperature 97.9 F Pulse Rate Pulse Rate [Brachial] 88 Respiratory Rate 18 18 Blood Pressure Blood Pressure [Left Arm] 137/85 O2 Sat by Pulse Oximetry 96 Oxygen Delivery Method Room Air 04/01/24 08:00 04/01/24 09:08 Temperature 97.3 F L Pulse Rate Pulse Rate [Brachial] 80 Respiratory Rate 18 Blood Pressure Blood Pressure [Left Arm] 143/90 O2 Sat by Pulse Oximetry 94 L Oxygen Delivery Method Room Air Room Air Labs: Laboratory Last Values WBC 9.1 X10^3/uL (3.6-10.0) 03/30/24 05:27 RBC 5.24 X10^6/uL (4.7-6.0) 03/30/24 05:27 Hgb 15.5 g/dL (13.5-18.0) 03/30/24 05:27 Hct 46.6 % (42.0-54.0) 03/30/24 05:27 MCV 88.9 fL (80.0-100.0) 03/30/24 05:27 MCH 29.7 pg (27.0-34.0) 03/30/24 05:27 MCHC 33.4 g/dL (33.0-35.0) 03/30/24 05:27 RDW 15.8 % (11.6-16.5) 03/30/24 05:27 Plt Count 239 X10^3/uL (150.0-450.0) 03/30/24 05:27 MPV 7.1 fL (7.4-11.0) L 03/30/24 05:27 Neut % (Auto) 75.8 % (42.0-75.0) H 03/30/24 05:27 Lymph % (Auto) 13.6 % (21.0-51.0) L 03/30/24 05:27 [place] % (Auto) 10.1 % (0.0-13.0) 03/30/24 05:27 Eos % (Auto) 0.3 % (0.9-2.9) L 03/30/24 05:27 Baso % (Auto) 0.2 % (0.2-1.0) 03/30/24 05:27 Neut # (Auto) 6.9 x10^3/uL (2.2-4.8) H 03/30/24 05:27 Lymph # (Auto) 1.2 X10^3/uL (1.3-2.9) L 03/30/24 05:27 [place] # (Auto) 0.9 x10^3/uL (0.3-0.8) H 03/30/24 05:27 Eos # (Auto) 0.0 x10^3/uL (0.0-0.2) 03/30/24 05:27 Baso # (Auto) 0.0 X10^3/uL (0.0-0.1) 03/30/24 05:27 Absolute Nucleated RBC 0.1 /100WBC 03/30/24 05:27 Sodium 138 mmol/L (136-145) 03/30/24 05:37 Corrected Sodium 139 mmol/L (136-145) 03/30/24 05:37 Potassium 4.0 mmol/L (3.5-5.1) 03/30/24 05:37 Chloride 102 mmol/L (98-107) 03/30/24 05:37 Carbon Dioxide 25.7 mmol/L (21-32) 03/30/24 05:37 BUN 36 mg/dL (7-18) H 03/30/24 05:37 Creatinine 0.88 mg/dL (0.70-1.30) 03/30/24 05:37 Est GFR (MDRD) Af Amer > 60 (>60) 03/30/24 05:37 Est GFR (MDRD) Non-Af > 60 (>60) 03/30/24 05:37 Glucose 153 mg/dL (65-99) H 03/30/24 05:37 Calcium 8.9 mg/dL (8.5-10.1) 03/30/24 05:37 Corrected Calcium TNP 03/30/24 05:37 Magnesium 2.0 mg/dL (2.0-2.9) 03/29/24 12:04 Total Bilirubin 0.40 mg/dL (0.2-1.0) 03/30/24 05:37 AST 19 Units/L (15-37) 03/30/24 05:37 ALT 15 Units/L (12-78) 03/30/24 05:37 Alkaline Phosphatase 65 Units/L (46-116) 03/30/24 05:37 Total Protein 7.0 g/dL (6.4-8.2) 03/30/24 05:37 Albumin 3.4 g/dL (3.4-5.0) 03/30/24 05:37 Globulin 3.6 g/dL (2.5-4.5) 03/30/24 05:37 Albumin/Globulin Ratio 0.9 Ratio (1.1-2.1) L 03/30/24 05:37 Lipase 19 Units/L (16-77) 03/29/24 12:04 Specimen Type Clean catch urine 03/29/24 21:00 Urine Color Kathi (YELLOW) 03/29/24 21:00 Urine Appearance Slightly hazy (CLEAR) 03/29/24 21:00 Urine pH 6.0 (5.0 - 8.0) 03/29/24 21:00 Ur Specific [place] 1.030 (1.000-1.030) 03/29/24 21:00 Urine Protein 3+ (NEGATIVE) 03/29/24 21:00 Urine Glucose (UA) 1+ (NEGATIVE) 03/29/24 21:00 Urine Ketones 3+ (NEGATIVE) 03/29/24 21:00 Urine Blood Negative (NEGATIVE) 03/29/24 21:00 Urine Nitrite Negative (NEGATIVE) 03/29/24 21:00 Urine Bilirubin 1+ (NEGATIVE) 03/29/24 21:00 Urine Urobilinogen 1+ (NORMAL) 03/29/24 21:00 Ur Leukocyte Esterase 1+ (NEGATIVE) 03/29/24 21:00 Urine RBC 0-2 /HPF (0-3) 03/29/24 21:00 Urine WBC 0-2 /HPF (0-5) 03/29/24 21:00 Ur Squamous Epith Cells Few /HPF (NEGATIVE) 03/29/24 21:00 Urine Bacteria Trace /HPF (NEGATIVE) 03/29/24 21:00 Hyaline Casts Few /LPF (NEGATIVE) 03/29/24 21:00 Urine Mucus Many /HPF (NEGATIVE) 03/29/24 21:00 Ur Culture Indicated? No/not indicated 03/29/24 21:00 Stl Occult Blood (IFOB) Positive (NEGATIVE) A 03/29/24 11:50 Reason For Visit: INCARCERATED R INGUINAL HERNIA, LOWER GI BLEED Discharge Date Discharge Date: 04/01/24 Discharge Diagnosis All Active Problems (Updated 03/29/24 @ 16:05 by Gallito Mcgill) Incarcerated right inguinal hernia (Acute) Acute lower GI bleeding (Acute) Plan of Treatment: Continue with present treatment and follow up plan. Pt is to keep follow up appointment as instructed and take medications as ordered. Discharge Medications Discharge Medications: No Known Allergies Allergy (Verified 03/29/24 11:26) CONTINUE taking the following medications NK 03/29/24 [History] all home medication Percocet, 5mg , 1 po q 6 hr PRN pain, #30 Discharge Disposition Assessment: see hospital course Discharge Plan Discharge Plan Hospital Course: 59 yo male presented with recurrent , incarcerated right inguinal hernia and had some blood per rectum. Exploration the next day revealed strangulated right inguinal . He underwent repair and had no bowel resection. He has done well , Hgb has been stable at 15.5 mg. He is tolerating a regular diet . He will be discharged with drain in place and will be instructed how to empty and record drainage. He may shower . F/U 1 week in my office to remove drain, wear scrotal support. Given prescription for Percocet, 5 mg , 1 po q 6 hr PRN pain, # 30. Will w/u bl0od per rectum as outpatient. Patient Disposition: 01 HOME, SELF-CARE Condition: Stable Health Concerns: Post Hospitalization: new medications and changes needed to prevent readmission or further decline. Pt educated and given instructions on all concerns. Care Plan Goals: Problem: Pain/Alteration in Comfort Goal: Improve/ Resolve Pain; Achieve Pain Tolerance Instructions: Take pain medications as prescribed. Contact your primary care provider if your pain is unrelieved or worsens. Follow up with primary care provider as directed. Plan of Treatment: Continue with present treatment and follow up plan. Pt is to keep follow up appointment as instructed and take medications as ordered. Assessment: see hospital course Prescription drug monitoring program results: PDMP reviewed and no concerns identified Prescriptions: New oxycodone-acetaminophen [Percocet] 5-325 mg tablet 1 tab PO Q6H MDD 4 PRNQty: 30 0RF Orders to Discharge Patient Discharge Orders: Discharge (Routine); Ordered 04/01/24 Ordered By: Noe Shirley Follow ups/Referrals Follow ups/Referrals: Noe Shirley [STAFF PHYSICIAN] - 1 WEEK Instructions Instructions: Inguinal Hernia, Adult, [id number], Hernia, Adult, [id number], Gastrointestinal Bleeding, [id number], Lower Gastrointestinal Bleeding Stand Alone Forms: Excuse From Work or School, Post Hospital Follow Up Care
[2024-04-01 11:44] VITALS: RESP 20
== END 2024-04-01 11:55 | disposition home or self-care (01) ==
LOC: MED/SURG 11:25 → ER 11:25 → MED/SURG 16:15
PROVIDERS: ADMIT Surgery; ATTEND Surgery
DX: K40.31 Unilateral inguinal hernia, with obstruction, without gangrene, recurrent; K80.00 Calculus of gallbladder with acute cholecystitis without obstruction; Z01.810 Encounter for preprocedural cardiovascular examination; K92.2 Gastrointestinal hemorrhage, unspecified; Z66 Do not resuscitate